=== PATIENT | male | born 1975 | race Caucasian/White ===

== ENCOUNTER 2017-03-20 00:38 | Inpatient (IN) | payer MEDICAID ==
[~2017-03-20] VITALS: Ht 175.3 cm; Wt 82.1 kg
[~2017-03-20 00:38] MED LIST: ALBU6.7H INH; ASPI-515 PO; CARV6.252 PO; CLIN300C8 PO; ENAL5TAB; FURO-92 PO; HYDR-3240 PO; LISI-167 PO; ONDA4TAB7 PO; POTA10CA PO; SIMV40TA3 PO; SPIR25TA3
[2017-03-20] MEDS ORDERED: SODIUM CHLORIDE FLUSH 10ML SYR IVF ONE ×2 (01:00→03:00)
[2017-03-20 01:39] LABS: HEMATOCRIT 37.7 % (39.2-51.8); HEMOGLOBIN 12.4 g/dL (13.7-18.0); WHITE BLOOD COUNT 7.3 x10^3/uL (3.4-10)
[2017-03-20] MEDS ORDERED: ALBU0.63 NEB (01:45)
[2017-03-20] MEDS ORDERED: SPIR25TA3 PO (01:45)
[2017-03-20 02:16] LABS: BLOOD UREA NITROGEN 19 mg/dL (7-18)
[2017-03-20 02:40] LABS: IS PT STATUS REG ER OR PRE ER? YES
[2017-03-20] MEDS ORDERED: POTASSIUM CHLORIDE 20 MEQ TAB.ER.PRT ONE (02:52)
[2017-03-20] MEDS ORDERED: ONDANSETRON 2MG/ML, 2ML ONE (02:52)
[2017-03-20] MEDS ORDERED: HYDROmorphone 2 MG/ML, 1ML ONE (02:52)
[2017-03-20] MEDS ORDERED: FUROSEMIDE 40 MG/4 ML ONE (02:52)
[2017-03-20] MEDS ORDERED: HYDROmorphone 2 MG/ML, 1ML IVPush PRN (03:00)
[2017-03-20] MEDS ORDERED: FUROSEMIDE 40 MG/4 ML IV ONE ×2 (03:00→05:30)
[2017-03-20] MEDS ORDERED: ONDANSETRON 2MG/ML, 2ML IVPush ONE (03:00)
[2017-03-20] MEDS ORDERED: POTASSIUM CHLORIDE 20 MEQ TAB.ER.PRT PO ONE (03:00)
[2017-03-20 05:00] VITALS: BP 125/89
[2017-03-20] MEDS ORDERED: ASPIRIN MC SCH (06:30)
[2017-03-20] MEDS ORDERED: ALBUTEROL SULFATE 2.5 MG/3 ML NPPB PRN (06:30)
[2017-03-20] MEDS ORDERED: ONDANSETRON ODT 4 MG PO PRN (06:30)
[2017-03-20] MEDS ORDERED: ONDANSETRON 2MG/ML, 2ML IVPush PRN (06:30)
[2017-03-20] MEDS ORDERED: PROMETHAZINE 25 MG/ML, 1ML IM PRN (06:30)
[2017-03-20] MEDS ORDERED: PHARMACY MAY ADJ FOR RENAL FX MC PRN (06:30)
[2017-03-20] MEDS ORDERED: ACETAMINOPHEN 325 MG TABLET PO PRN (06:30)
[2017-03-20] MEDS: FUROSEMIDE 40 MG/4 ML IV SCH ×2 (06:39→17:50)
[2017-03-20 07:39] VITALS: BP 100/57
[2017-03-20 07:48] LABS: HEMATOCRIT 37.4 % (39.2-51.8); HEMOGLOBIN 12.3 g/dL (13.7-18.0); WHITE BLOOD COUNT 6.3 x10^3/uL (3.4-10)
[2017-03-20 07:59] LABS: BLOOD UREA NITROGEN 17 mg/dL (7-18)
[2017-03-20 08:08] LABS: ASPARTATE AMINO TRANSFERASE 25 U/L (15-37)
[2017-03-20] MEDS: HEPARIN 5,000 UNITS/ML, 1ML SQ SCH ×2 (08:56→17:50)
[2017-03-20] MEDS: ASPIRIN 81 MG TABLET EC PO SCH (08:56)
[2017-03-20] MEDS: CARVEDILOL 6.25 MG TABLET PO SCH ×2 (08:56→22:01)
[2017-03-20] MEDS: SODIUM CHLORIDE FLUSH 10ML SYR IVF SCH ×2 (08:56→22:00)
[2017-03-20] MEDS ORDERED: SPIRONOLACTONE 100 MG TABLET PO SCH (09:00)
[2017-03-20] MEDS ORDERED: POTASSIUM CHLORIDE 20 MEQ TAB.ER.PRT PO SCH (09:00)
[2017-03-20] MEDS ORDERED: LISINOPRIL 10 MG TABLET PO SCH (09:00)
[2017-03-20] MEDS: NICOTINE 7 MG/24 HR PATCH.TD24 TD SCH (09:00)
[2017-03-20] MEDS ORDERED: HYDROcodone/APAP 5/325 TABLET ONE (10:35)
[2017-03-20] MEDS: HYDROcodone/APAP 5/325 TABLET PO PRN ×3 (10:38→22:50)
[2017-03-20 15:06] VITALS: BP 104/66
[2017-03-20] MEDS: POTASSIUM CHLORIDE 20 MEQ TAB.ER.PRT PO SCH (17:50)
[2017-03-20 20:30] VITALS: BP 95/67
[2017-03-20] MEDS ORDERED: MAGNESIUM SULFATE PMX 2GM/50ML 50 ML IV ONE (22:30)
[2017-03-21 00:42] LABS: DAU SCREEN DISCLAIMER
[2017-03-21] MEDS: HEPARIN 5,000 UNITS/ML, 1ML SQ SCH ×3 (01:19→17:00)
[2017-03-21 01:43] VITALS: BP 94/67
[2017-03-21] MEDS ORDERED: ASPIRIN 325 MG TABLET EC PO SCH (06:00)
[2017-03-21 08:26] VITALS: BP 107/70
[2017-03-21] MEDS: HYDROcodone/APAP 5/325 TABLET PO PRN ×3 (08:49→21:09)
[2017-03-21] MEDS: FUROSEMIDE 40 MG/4 ML IV SCH ×2 (08:50→17:10)
[2017-03-21] MEDS: LISINOPRIL 10 MG TABLET PO SCH (08:50)
[2017-03-21] MEDS: CARVEDILOL 6.25 MG TABLET PO SCH ×2 (08:50→21:10)
[2017-03-21] MEDS: ASPIRIN 81 MG TABLET EC PO SCH (08:50)
[2017-03-21] MEDS: SPIRONOLACTONE 100 MG TABLET PO SCH (08:50)
[2017-03-21] MEDS: POTASSIUM CHLORIDE 20 MEQ TAB.ER.PRT PO SCH ×2 (08:50→17:10)
[2017-03-21] MEDS: SODIUM CHLORIDE FLUSH 10ML SYR IVF SCH ×2 (08:51→21:09)
[2017-03-21] MEDS: NICOTINE 7 MG/24 HR PATCH.TD24 TD SCH (08:51)
[2017-03-21 14:33] LABS: BLOOD UREA NITROGEN 25 mg/dL (7-18)
[2017-03-21 16:36] VITALS: BP 97/71
[2017-03-21 20:41] VITALS: BP 105/66
[2017-03-22 01:48] VITALS: BP 96/63
[2017-03-22] MEDS: HEPARIN 5,000 UNITS/ML, 1ML SQ SCH ×3 (03:44→16:18)
[2017-03-22] MEDS: HYDROcodone/APAP 5/325 TABLET PO PRN ×4 (03:44→21:17)
[2017-03-22 06:20] LABS: WHITE BLOOD COUNT 7.8 x10^3/uL (3.4-10)
[2017-03-22 06:21] LABS: HEMATOCRIT 40.6 % (39.2-51.8); HEMOGLOBIN 13.3 g/dL (13.7-18.0)
[2017-03-22 06:40] LABS: ASPARTATE AMINO TRANSFERASE 22 U/L (15-37); BLOOD UREA NITROGEN 32 mg/dL (7-18)
[2017-03-22 06:44] VITALS: BP 91/59
[2017-03-22] MEDS: LISINOPRIL 10 MG TABLET PO SCH (08:38)
[2017-03-22] MEDS: FUROSEMIDE 40 MG/4 ML IV SCH ×2 (08:38→16:57)
[2017-03-22] MEDS: ASPIRIN 81 MG TABLET EC PO SCH (08:38)
[2017-03-22] MEDS: CARVEDILOL 6.25 MG TABLET PO SCH ×2 (08:38→21:16)
[2017-03-22] MEDS: NICOTINE 7 MG/24 HR PATCH.TD24 TD SCH (08:39)
[2017-03-22] MEDS: SPIRONOLACTONE 100 MG TABLET PO SCH (08:39)
[2017-03-22] MEDS: SODIUM CHLORIDE FLUSH 10ML SYR IVF SCH ×2 (08:39→21:15)
[2017-03-22] MEDS: POTASSIUM CHLORIDE 20 MEQ TAB.ER.PRT PO SCH ×2 (08:39→16:57)
[2017-03-22 13:52] VITALS: BP 101/53
[2017-03-22 20:33] VITALS: BP_SYST 87; BP_SYST 89; BP_DIAS 44; BP_DIAS 52
[2017-03-22 21:17] VITALS: BP 102/60
[2017-03-23] MEDS: HEPARIN 5,000 UNITS/ML, 1ML SQ SCH ×3 (01:18→16:59)
[2017-03-23 02:05] VITALS: BP 101/68
[2017-03-23 06:20] LABS: BLOOD UREA NITROGEN 31 mg/dL (7-18)
[2017-03-23] MEDS: NICOTINE 7 MG/24 HR PATCH.TD24 TD SCH (09:00)
[2017-03-23 09:10] VITALS: BP 101/65
[2017-03-23] MEDS: SPIRONOLACTONE 100 MG TABLET PO SCH (09:28)
[2017-03-23] MEDS: SODIUM CHLORIDE FLUSH 10ML SYR IVF SCH ×2 (09:28→21:00)
[2017-03-23] MEDS: CARVEDILOL 6.25 MG TABLET PO SCH ×2 (09:28→21:00)
[2017-03-23] MEDS: LISINOPRIL 10 MG TABLET PO SCH (09:28)
[2017-03-23] MEDS: ASPIRIN 81 MG TABLET EC PO SCH (09:28)
[2017-03-23] MEDS: HYDROcodone/APAP 5/325 TABLET PO PRN (09:29)
[2017-03-23] MEDS: FUROSEMIDE 40 MG/4 ML IV SCH ×2 (09:29→17:00)
[2017-03-23 13:43] VITALS: BP 100/67
[2017-03-23 19:01] VITALS: BP 85/49
[2017-03-23] MEDS: DOCUSATE 100 MG CAPSULE PO SCH (21:00)
[2017-03-24] MEDS: HEPARIN 5,000 UNITS/ML, 1ML SQ SCH ×4 (00:35→23:59)
[2017-03-24 01:05] VITALS: BP 115/83
[2017-03-24 06:47] LABS: BLOOD UREA NITROGEN 29 mg/dL (7-18)
[2017-03-24 06:50] VITALS: BP 104/73
[2017-03-24] MEDS: FUROSEMIDE 40 MG/4 ML IV SCH ×2 (08:47→16:33)
[2017-03-24] MEDS: ASPIRIN 81 MG TABLET EC PO SCH (08:47)
[2017-03-24] MEDS: CARVEDILOL 6.25 MG TABLET PO SCH ×2 (08:47→19:25)
[2017-03-24] MEDS: SPIRONOLACTONE 100 MG TABLET PO SCH (08:47)
[2017-03-24] MEDS: DOCUSATE 100 MG CAPSULE PO SCH ×2 (08:47→19:25)
[2017-03-24] MEDS: LISINOPRIL 10 MG TABLET PO SCH (08:47)
[2017-03-24] MEDS: NICOTINE 7 MG/24 HR PATCH.TD24 TD SCH (08:48)
[2017-03-24] MEDS: SODIUM CHLORIDE FLUSH 10ML SYR IVF SCH ×2 (08:48→19:24)
[2017-03-24] MEDS: HYDROcodone/APAP 5/325 TABLET PO PRN ×3 (08:54→17:54)
[2017-03-24] MEDS: GUAIFENESIN/DM 200-20MG, 10ML UDC PO PRN ×3 (08:55→23:40)
[2017-03-24] MEDS ORDERED: POTASSIUM CHLORIDE 20 MEQ TAB.ER.PRT PO SCH (09:00)
[2017-03-24 12:40] VITALS: BP 96/62
[2017-03-24] MEDS ORDERED: HYDROcodone/APAP 5/325 TABLET PO PRN (18:30)
[2017-03-24 19:16] VITALS: BP 98/60
[2017-03-25 04:07] VITALS: BP 111/79
[2017-03-25 04:19] LABS: BLOOD UREA NITROGEN 26 mg/dL (7-18)
[2017-03-25 04:22] LABS: ASPARTATE AMINO TRANSFERASE 23 U/L (15-37)
[2017-03-25] MEDS: GUAIFENESIN/DM 200-20MG, 10ML UDC PO PRN ×2 (06:35→21:57)
[2017-03-25 07:40] VITALS: BP 101/67
[2017-03-25] MEDS: HEPARIN 5,000 UNITS/ML, 1ML SQ SCH ×2 (09:00→17:00)
[2017-03-25] MEDS: NICOTINE 7 MG/24 HR PATCH.TD24 TD SCH (09:00)
[2017-03-25] MEDS: FUROSEMIDE 40 MG/4 ML IV SCH ×2 (09:36→17:33)
[2017-03-25] MEDS: LISINOPRIL 10 MG TABLET PO SCH (09:38)
[2017-03-25] MEDS: CARVEDILOL 6.25 MG TABLET PO SCH ×2 (09:38→21:49)
[2017-03-25] MEDS: SPIRONOLACTONE 100 MG TABLET PO SCH (09:38)
[2017-03-25] MEDS: ASPIRIN 81 MG TABLET EC PO SCH (09:38)
[2017-03-25] MEDS: DOCUSATE 100 MG CAPSULE PO SCH ×2 (09:38→21:00)
[2017-03-25] MEDS: SODIUM CHLORIDE FLUSH 10ML SYR IVF SCH ×2 (09:40→21:49)
[2017-03-25] MEDS: PROMETHAZINE/COD. 10MG/6.25MG/5 ML ORAL SOL PO PRN ×2 (11:42→17:42)
[2017-03-25 19:41] VITALS: BP 94/48
[2017-03-26] MEDS: HEPARIN 5,000 UNITS/ML, 1ML SQ SCH ×3 (01:00→17:00)
[2017-03-26 01:31] VITALS: BP 92/52
[2017-03-26 06:13] LABS: BLOOD UREA NITROGEN 24 mg/dL (7-18)
[2017-03-26 08:12] VITALS: BP 99/55
[2017-03-26] MEDS: NICOTINE 7 MG/24 HR PATCH.TD24 TD SCH (09:00)
[2017-03-26] MEDS: SPIRONOLACTONE 100 MG TABLET PO SCH (09:19)
[2017-03-26] MEDS: DOCUSATE 100 MG CAPSULE PO SCH ×2 (09:20→22:27)
[2017-03-26] MEDS: CARVEDILOL 6.25 MG TABLET PO SCH ×2 (09:20→22:28)
[2017-03-26] MEDS: ASPIRIN 81 MG TABLET EC PO SCH (09:20)
[2017-03-26] MEDS: SODIUM CHLORIDE FLUSH 10ML SYR IVF SCH ×2 (09:21→22:28)
[2017-03-26] MEDS: LISINOPRIL 10 MG TABLET PO SCH (09:24)
[2017-03-26] MEDS: FUROSEMIDE 40 MG/4 ML IV SCH ×2 (10:12→17:20)
[2017-03-26] MEDS: PROMETHAZINE/COD. 10MG/6.25MG/5 ML ORAL SOL PO PRN ×2 (10:12→18:40)
[2017-03-26 14:30] VITALS: BP 95/52
[2017-03-26 20:58] VITALS: BP 90/56
[2017-03-26] MEDS: GUAIFENESIN/DM 200-20MG, 10ML UDC PO PRN (22:28)
[2017-03-27] MEDS: PROMETHAZINE/COD. 10MG/6.25MG/5 ML ORAL SOL PO PRN ×2 (00:46→06:32)
[2017-03-27] MEDS: HEPARIN 5,000 UNITS/ML, 1ML SQ SCH ×2 (01:00→09:00)
[2017-03-27 01:43] VITALS: BP 97/51
[2017-03-27 05:03] LABS: BLOOD UREA NITROGEN 23 mg/dL (7-18)
[2017-03-27] MEDS ORDERED: FURO40TA6 PO (07:15)
[2017-03-27] MEDS ORDERED: SPIR100T PO (07:15)
[2017-03-27] MEDS ORDERED: PROM118S4 PO (07:15)
[2017-03-27 08:00] VITALS: BP 99/56
[2017-03-27] MEDS: NICOTINE 7 MG/24 HR PATCH.TD24 TD SCH (09:00)
[2017-03-27] MEDS: DOCUSATE 100 MG CAPSULE PO SCH (09:00)
[2017-03-27] MEDS: LISINOPRIL 10 MG TABLET PO SCH (09:10)
[2017-03-27] MEDS: SODIUM CHLORIDE FLUSH 10ML SYR IVF SCH (09:10)
[2017-03-27] MEDS: SPIRONOLACTONE 100 MG TABLET PO SCH (09:10)
[2017-03-27] MEDS: CARVEDILOL 6.25 MG TABLET PO SCH (09:10)
[2017-03-27] MEDS: ASPIRIN 81 MG TABLET EC PO SCH (09:11)
[2017-03-27] MEDS ORDERED: FUROSEMIDE 40 MG TABLET PO SCH (17:00)
== END 2017-03-27 11:30 | disposition home or self-care (01) | DRG 291 ==
LOC: ED 02:43 → EDIP 02:48 → ED 03:04 → 4WST 04:53
PROVIDERS: ADMIT Surgery; ATTEND Internal Medicine
DX: I50.23 Acute on chronic systolic (congestive) heart failure (principal); E43 Unspecified severe protein-calorie malnutrition; N17.9 Acute kidney failure, unspecified; I42.0 Dilated cardiomyopathy; K21.9 Gastro-esophageal reflux disease without esophagitis; E78.5 Hyperlipidemia, unspecified; E87.6 Hypokalemia; F12.10 Cannabis abuse, uncomplicated; F15.10 Other stimulant abuse, uncomplicated; J45.909 Unspecified asthma, uncomplicated; Z79.899 Other long term (current) drug therapy; Z91.19 Patient's noncompliance with other medical treatment and regimen; Z95.810 Presence of automatic (implantable) cardiac defibrillator; Z87.891 Personal history of nicotine dependence; Z68.26 Body mass index [BMI] 26.0-26.9, adult
CPT/HCPCS: 36415; 71010; 71020; 80048; 80053; 80061; 80307; 82040; 83036; 83690; 83735; 83880; 84100; 84443; 84484; 85025; 93005; 93306; 96374; 96375; J1170; J1644; J1940; J2405; G0479; J3475